=== PATIENT | female | born 1980 | race Caucasian/White ===

== ENCOUNTER 2017-04-14 23:08 | Emergency (ER) | payer OTHER ==
[~2017-04-14] VITALS: Ht 149.9 cm; Wt 59.0 kg
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
[2017-04-15] MEDS ORDERED: AUGMENTIN 500-1 EACH PO (00:54)
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
[2017-04-15 02:01] VITALS: BP 110/80
== END 2017-04-15 02:01 ==
LOC: ERH 23:08
DX: S81.011A Laceration without foreign body, right knee, initial encounter (principal); S06.9X1A Unspecified intracranial injury with loss of consciousness of 30 minutes or less, initial encounter; M25.512 Pain in left shoulder; V89.2XXA Person injured in unspecified motor-vehicle accident, traffic, initial encounter; Y92.9 Unspecified place or not applicable; Y93.9 Activity, unspecified
CPT/HCPCS: 73030-LT; 73560-RT; 81025; 90471; 90714